=== PATIENT | male | born 1960 | race Caucasian/White ===

== ENCOUNTER → 2016-03-17 | Outpatient (CLI) | payer BC ==
[~2016-03-17] MED LIST: ASPI81TA28 PO; CLR10 PO; FLUT0.15 NAE; GLC/500 PO; GLIP-197 PO; LISI-729 PO; METF1TAB53 PO; NADO20TA PO; OXYC1TAB3 PO; PANT40TA PO; PHYT100T PO; SIMV40TA2 PO; TRMCR130WC TOP; VARD10TA PO
[2016-03-17 13:13] LABS: INR 1.2 (0.9-1.1); PARTIAL THROMBOPLASTIN RATIO 1.1; PROTHROMBIN TIME (PATIENT) 12.9 SECONDS (9.0-12.0)
[2016-03-17 13:23] LABS: BLOOD UREA NITROGEN 17 mg/dl (7-18); BUN/CREATININE RATIO 20.6 (10-20); CALCIUM 8.7 mg/dl (8.5-10.1); CARBON DIOXIDE 26 mmol/L (21-32); CHLORIDE 107 mmol/L (98-107); CREATININE 0.81 mg/dl (0.60-1.40); GLUCOSE 87 mg/dl (70-99); POTASSIUM 4.1 mmol/L (3.5-5.1); SODIUM 141 mmol/L (136-145)
[2016-03-17 13:46] LABS: BASO % 0.4 %; BASO ABS # 0.02 K/uL (0-0.2); COMPLETE YES; EOS % 4.9 %; HEMATOCRIT 38.4 % (42-52); IG% 0.2 %; LYMPH % 15.1 %; LYMPH ABS # 0.83 K/uL (1.2-3.4); MEAN CELL VOLUME 86.1 fL (80-100); MEAN CORPUSCULAR HEMOGLOBIN 29.1 pg (25-34); MEAN CORPUSCULAR HGB CONC 33.9 g/dl (32-36); MEAN PLATELET VOLUME 11.8 fL (7.4-10.4); MONO % 8.6 %; NEUT % 70.8 %; PLATELET COUNT 60 K/uL (130-400); PLT ESTIMATE DECREASED; RED BLOOD COUNT 4.46 M/uL (4.7-6.1); WHITE BLOOD COUNT 5.48 K/uL (4.8-10.8)
== END | disposition home or self-care (01) ==
LOC: C.LABMFLN 11:51
PROVIDERS: ATTEND Surgery
DX: Z01.812 Encounter for preprocedural laboratory examination (principal); D69.6 Thrombocytopenia, unspecified; K42.9 Umbilical hernia without obstruction or gangrene; I85.01 Esophageal varices with bleeding

== ENCOUNTER 2016-03-18 08:03 | Day surgery (SDC) | payer BC, OTHER ==
[2016-03-11 14:49] VITALS: BMI 35.0
[~2016-03-18] VITALS: Ht 180.3 cm; Wt 116.4 kg
[~2016-03-18 08:03] MED LIST changes: +LACTATED RINGER'S 1000ML IV SCH; -OXYC1TAB3 PO; +VANCOMYCIN INJ 1,000 MG in SODIUM CHLORIDE 0.9% 250ML 250 ML IV SCH; +VANCOMYCIN INJ 1,750 MG in SODIUM CHLORIDE 0.9% 500ML 500 ML IV SCH
[2016-03-18 08:29] VITALS: BP 131/63; PULSE 58; TEMP 36.8; O2SAT 97; Ht 180.3 cm; Wt 116.4 kg
--- NOTE | 2016-03-18 08:31 | History & Physical Bridge Note ---
H&P Re-Evaluation Bridge Note: I have examined the patient, reviewed the History & Physical and in the interval since the performance of the History & Physical I have noted the following changes of clinical significance: No changes noted will check PT/INR and platelet will be here later pt marked no caput medusa
[2016-03-18 08:59] LABS: INR 1.2 (0.9-1.1); PROTHROMBIN TIME (PATIENT) 13.4 SECONDS (9.0-12.0)
[2016-03-18 09:36] LABS: PLATELET COUNT 48 K/uL (130-400)
[2016-03-18] MEDS ORDERED: ATROPINE SULFATE 0.1 MG/ML 5ML SYR IV PRN (09:45)
[2016-03-18] MEDS ORDERED: EpHEDrine SULFATE INJ 50 MG/ML AMP IV PRN (09:45)
[2016-03-18] MEDS ORDERED: FENTANYL CITRATE INJ 50 MCG/1 ML 2 ML VIAL IV PRN (09:45)
[2016-03-18] MEDS ORDERED: HYDROmorphone INJ 1 MG/ML SYR IV PRN (09:45)
[2016-03-18] MEDS ORDERED: ONDANSETRON INJ 2 MG/ML 2 ML VIAL IV PRN ×2 (09:45→12:00)
[2016-03-18] MEDS ORDERED: PROPOFOL IV EMULSION 10 MG/ML 20 ML VIAL IV ONE (09:51)
[2016-03-18] MEDS ORDERED: LIDOCAINE HCL 2% 2 ML VIAL (20MG/ML) ONE (09:51)
[2016-03-18] MEDS ORDERED: MIDAZOLAM HCL 1 MG/ML 2ML VIAL ONE (09:51)
[2016-03-18] MEDS ORDERED: ONDANSETRON INJ 2 MG/ML 2 ML VIAL ONE (09:51)
[2016-03-18] MEDS ORDERED: FENTANYL CITRATE INJ 50 MCG/1 ML 2 ML VIAL ONE (09:51)
[2016-03-18] MEDS ORDERED: DEXAMETHASONE SOD INJ 4 MG/ML VIAL ONE (09:51)
[2016-03-18] MEDS ORDERED: BUPIVACAINE/EPINEPHRINE 0.5% MPF 1:200,000 30 ML VIAL ONE (10:53)
[2016-03-18] MEDS ORDERED: ROCURONIUM BROMIDE 10 MG/ML 5 ML VIAL ONE (11:36)
[2016-03-18] MEDS ORDERED: SUCCINYLCHOLINE CHLORIDE 20 MG/ML 10 ML VIAL IV ONE (11:36)
[2016-03-18] MEDS ORDERED: BACITRACIN 50,000 UNITS IR ONE (11:50)
--- NOTE | 2016-03-18 11:50 | [facility] Post Operative Brief Note ---
Immediate Operative Summary Operative Date Mar 18, 2016. Pre-Operative Diagnosis intermittantly inc umbilical hernia Post-Operative Diagnosis same Procedure(s) Performed primary repair with marlex mesh onlay Surgeon [employer] Surgeon(s) jahaira guthrie Estimated Blood Loss 2 cc Findings 2 cm defect at umbilical opening
[2016-03-18] MEDS ORDERED: LACTATED RINGER'S 1000ML 1,000 ML IV SCH (11:54)
[2016-03-18] MEDS ORDERED: OXYC1TAB3 PO (11:57)
[2016-03-18] MEDS ORDERED: MoRPHine SULFATE 4 MG/ML 1 ML CARP\\VIAL IV PRN (12:00)
[2016-03-18] MEDS ORDERED: OXYCODONE HCL IR 5 MG TAB (IMMEDIATE RELEASE) PO PRN (12:00)
[2016-03-18] MEDS ORDERED: GLYCOPYRROLATE INJ 0.2 MG/ML VIAL ONE (12:16)
[2016-03-18] MEDS ORDERED: NEOSTIGMINE METHYLSULFATE 5 MG/5 ML SYR ONE (12:16)
--- NOTE | 2016-03-18 12:23 | OPERATIVE REPORT ---
DATE OF OPERATION: 03/18/2016 PREOPERATIVE DIAGNOSIS: Intermittent incarcerated umbilical hernia. POSTOPERATIVE DIAGNOSIS: Same with defect approximately 2 cm. PROCEDURE: Repair intermittent incarcerated umbilical hernia with Marlex mesh onlay. SURGEON: Dr. Bridges. OPERATION AND FINDINGS: SUMMARY: The patient was brought into the operating room theater. The abdomen was prepped with Betadine scrubbing solution and properly draped. Vancomycin had been given preoperatively. We made an incision above and below the umbilicus to the left, deepened through subcutaneous tissue. We used electrocautery. We had very little excess bleeding and platelets was 48,000. We then on into the abdominal wall, actually could see circumferentially as we freed the abdominal wall the only defect appeared to be right at the umbilical opening which was undermining the umbilical skin. We then just freed this up from making sure not to violate the skin on the umbilicus, freed the hernial sac from the surrounding tissue until we were able then to identify and see that it was just coming out of the umbilical opening. A small opening inadvertently made in the sac and we did appreciate some clear ascitic fluid represented from his cirrhotic liver. There were no contents in the hernial sac. We then closed the hernial sac completely with running 3-0 chromic suture, making sure there was no leakage. We returned this into the preperitoneal area and actually could identify the defect. I did not dissect underneath due to portal hypertension likely. We were able to delineate the mass, was about a 1.5 to 2 cm. I closed it transversely with interrupted #1 PDS, 2 [id number], 2 interrupted 2-0 and simple sutures. Then we scored the overlying abdominal wall surrounding it about a cm and a half circumferentially, brought a sheet of Marlex mesh onto the field and onlaid it onto the abdominal wall using 2-0 Prolene sutures. The repair appeared to be overlap the defect about cm or so circumferentially. Once hemostasis was satisfactory, we then closed the wound in multiple layer 2-0 Vicryl interrupted and the skin edges approximated with levy. A piece of cotton swab was placed in the umbilical area. Dressing was applied. The procedure was tolerated well by the patient. Estimated blood loss approximately 2 mL. The patient was taken to recovery room in good condition. I attest to the content of the Intraoperative Record and any orders documented therein. Any exceptions are noted below. MTDD
[2016-03-18 13:00] VITALS: BP 125/73; PULSE 58; TEMP 37; O2SAT 98
[2016-03-18 13:30] VITALS: BP 122/66; PULSE 63; O2SAT 96
--- NOTE | 2016-03-18 13:34 | Discharge Instructions ---
Discharge Instructions Visit Reason for Visit: Umbilical Hernia Discharge Discharge Diagnosis / Problem: Repair of hernia Discharge Goals Goal(s): Decrease discomfort Activity Recommendations Activity Limitations: per Instructions/Follow-up section Lifting Limitations: no more than 10 pounds Shower/Bathe: no limitations, tomorrow (may shower over the bandage, it is waterproof, remove in 2-3 days) Driving or Machine Use: resume 3 days after discharge (if not taking oxycodone) Anesthesia . Post Anesthesia Instructions: If you have had General Anesthesia or IV Sedation: * Do not drive today. * Resume driving when surgeon permits. * Do not make important decisions or sign legal documents today. * Call surgeon for: 1. Temperature elevations greater than 101 degrees F. 2. Uncontrollable pain. 3. Excessive bleeding. 4. Persistent nausea and vomiting. 5. Medication intolerance (nausea, vomiting or rash). * For nausea and vomiting use only clear liquids such as: tea, soda, bouillon until nausea subsides, then gradually increase diet as tolerated. * If you have any concerns or questions, call your surgeon's office. If physician is unavailable and it is an emergency, call 911 or go to the nearest emergency room. . Instructions / Follow-Up Instructions / Follow-Up Dr. Bridges's office in 1 week, call [phone] if you do not already have an appt Diet Recommendations Recommended Home Diet: no limitations Procedures Procedures Performed: primary repair with marlex mesh onlay Medical Emergencies . Who to Call and When: Medical Emergencies: If at any time you feel your situation is an emergency, please call 911 immediately. . Non-Emergent Contact Non-Emergency issues call your: Surgeon Call Non-Emergent contact if: you have a fever, temperature is above 101.5, your pain is not controlled, wound has increased redness . . "Provider Documentation" section prepared by Michele Khan.
--- NOTE | 2016-03-18 13:50 | Anesthesiology Progress Note ---
Anesthesia Post Op Note Date & Time Mar 18, 2016 at 13:50 Vital Signs Pain Intensity: 0 Vital Signs Past 12 Hours Date Time Temp Pulse Resp B/P Pulse Ox O2 Delivery O2 Flow Rate FiO2 03/18/16 13:30 63 16 122/66 96 Room Air 03/18/16 13:00 37 58 16 125/73 98 Room Air 03/18/16 12:54 37.3 03/18/16 12:51 57 17 03/18/16 12:51 57 17 98 03/18/16 12:48 123/65 03/18/16 12:46 63 16 97 03/18/16 12:46 63 16 03/18/16 12:43 122/75 03/18/16 12:41 59 13 03/18/16 12:41 59 13 98 03/18/16 12:38 123/73 03/18/16 12:36 60 14 99 03/18/16 12:36 59 14 03/18/16 12:35 62 21 99 03/18/16 12:35 62 21 03/18/16 12:33 131/76 03/18/16 12:30 55 21 100 03/18/16 12:30 55 21 03/18/16 12:28 124/71 03/18/16 12:25 59 21 03/18/16 12:25 58 21 100 03/18/16 12:23 123/72 03/18/16 12:20 62 16 99 03/18/16 12:20 62 16 03/18/16 12:18 119/76 03/18/16 12:15 64 23 100 03/18/16 12:15 36.7 67 16 129/70 100 10 03/18/16 12:15 64 23 03/18/16 08:29 36.8 58 18 131/63 97 Room Air Notes Mental Status: alert / awake / arousable, participated in evaluation Pt Amnestic to Procedure: Yes Nausea / Vomiting: adequately controlled Pain: adequately controlled Airway Patency, RR, SpO2: stable & adequate BP & HR: stable & adequate Hydration State: stable & adequate Anesthetic Complications: no major complications apparent
[2016-03-18 14:00] VITALS: BP 131/67; PULSE 60; TEMP 36; O2SAT 98
== END 2016-03-18 14:15 | disposition home or self-care (01) ==
LOC: C.ACU 08:03
PROVIDERS: ATTEND Surgery
DX: K42.0 Umbilical hernia with obstruction, without gangrene (principal); I85.01 Esophageal varices with bleeding; K52.9 Noninfective gastroenteritis and colitis, unspecified; E11.9 Type 2 diabetes mellitus without complications; I10 Essential (primary) hypertension; E66.9 Obesity, unspecified; E78.5 Hyperlipidemia, unspecified; D69.6 Thrombocytopenia, unspecified; Z82.49 Family history of ischemic heart disease and other diseases of the circulatory system; Z83.3 Family history of diabetes mellitus; Z72.0 Tobacco use; Z79.82 Long term (current) use of aspirin